=== PATIENT | male | born 1995 | race Caucasian/White ===

== ENCOUNTER 2016-05-25 22:27 | Emergency (ER) | payer OTHER ==
[~2016-05-25] VITALS: Ht 177.8 cm; Wt 160.5 kg
[~2016-05-25 22:27] MED LIST: ALBU8.5H5
[2016-05-25 22:46] VITALS: Ht 177.8 cm; Wt 160.5 kg
[2016-05-26 02:37] VITALS: BP 122/83; PULSE 77; RESP 20; TEMP 98.2
--- NOTE | 2016-05-26 05:19 | ERD ---
ER Documentation Chief Complaint Date/Time DATE: 05/26/16 TIME: 05:17 Chief Complaint needle stick while throwing trash at work HPI This patient is a 21-year-old male with history of appendicitis presenting to the emergency department for needle stick on the right medial side of his hand which occurred at approximately 9 PM today. The patient is right-hand dominant. The patient was unsure if you stem by needle or some other object while taking out the trash at his job. He said he squeezed some blood out of the wound directly after but no other bleeding occurred. The patient also washed the area with soap and water. The patient's tetanus is up-to-date. The patient denies fevers, chills, or other symptoms at this time. ROS All systems reviewed and are negative except as per history of present illness. Medications Home Meds Reported Medications Albuterol Sulfate* (Albuterol Sulfate* HFA) 8.5 Gm Hfa.aer.ad 05/09/09 Allergies Allergies: Coded Allergies: No Known Drug Allergies (Verified Allergy, Mild, 05/09/09) PMhx/Soc History of Surgery: Yes (S/P L PROXIMAL FEMUR LESION BIOPSY 08-04-12) Anesthesia Reaction: No Hx Neurological Disorder: No Hx Respiratory Disorders: Yes (ASTHMA) Hx Cardiac Disorders: No Hx Psychiatric Problems: No Hx Miscellaneous Medical Probl: No Hx Alcohol Use: No Hx Substance Use: No Hx Tobacco Use: No Smoking Status: Never smoker FmHx Noncontributory for chief complaint. Physical Exam Vitals Vital Signs Date Time Temp Pulse Resp B/P Pulse Ox O2 Delivery O2 Flow Rate FiO2 05/26/16 02:37 98.2 77 20 122/83 98 Room Air 05/25/16 22:46 98.8 99 20 151/81 98 Physical Exam Const: The patient is resting comfortably in no acute distress. Head: Atraumatic Eyes: Normal Conjunctiva ENT: Normal External Ears, Nose and Mouth. Neck: Full range of motion..~ No meningismus. Resp: Clear to auscultation bilaterally Cardio: Regular rate and rhythm, no murmurs Abd: Soft, non tender, non distended. Normal bowel sounds Skin: No petechiae or rashes Back: No midline or flank tenderness Ext: No cyanosis, or edema Neur: Awake and alert Psych: Normal Mood and Affect Results 24 hrs Laboratory Tests Test 05/26/16 02:28 Hepatitis B Surface Antigen NEGATIVE Hepatitis C Antibody NEGATIVE HIV (1&2) Antibody NEGATIVE Procedures/MDM I have ordered the needlestick panel as a routine lab check. Patient is to call in 1 week for further results. The patient is to return in 3 months to have repeat labs drawn. The patient is to return in 6 months to have repeat labs drawn. Patient was given instructions regarding prevention of needlestick injuries in the future. I will suspicion for cellulitis or other emergent conditions at this time. The patient is to follow-up with her primary care physician. Departure Diagnosis: Primary Impression: Needlestick injury accident Condition: Fair Patient Instructions: Standard Precautions: [place] Referrals: [facility]) [facility] YOU HAVE RECEIVED A MEDICAL SCREENING EXAM AND THE RESULTS INDICATE THAT YOU DO NOT HAVE A CONDITION THAT REQUIRES URGENT TREATMENT IN THE EMERGENCY DEPARTMENT. FURTHER EVALUATION AND TREATMENT OF YOUR CONDITION CAN WAIT UNTIL YOU ARE SEEN IN YOUR DOCTORS OFFICE WITHIN THE NEXT 1-2 DAYS. IT IS YOUR RESPONSIBILITY TO MAKE AN APPOINTMENT FOR FOLOW-UP CARE. IF YOU HAVE A PRIMARY DOCTOR --you should call your primary doctor and schedule an appointment IF YOU DO NOT HAVE A PRIMARY DOCTOR YOU CAN CALL OUR PHYSICIAN REFERRAL HOTLINE AT IF YOU CAN NOT AFFORD TO SEE A PHYSICIAN YOU CAN CHOSE FROM THE FOLLOWING [facility] [address] [facility] [address] [facility] [facility] [address] [facility]. [facility] [address] [facility]. [facility] [address] [facility]. [facility]. [address] Additional Instructions: Return here or to your primary care physician in 3 months. Return here or to your primary care physician in 6 months. Follow-up with your primary care physician within 1 week. Return to the emergency department immediately should you have any new or worsening symptoms, uncontrolled fevers, or other unexplained symptoms. ANGEL AC PA-C May 26, 2016 05:19
== END 2016-05-26 02:39 | disposition home or self-care (01) ==
LOC: FTE 22:27
DX: S61.431A Puncture wound without foreign body of right hand, initial encounter (principal); J45.909 Unspecified asthma, uncomplicated; W46.1XXA Contact with contaminated hypodermic needle, initial encounter; Y92.89 Other specified places as the place of occurrence of the external cause
CPT/HCPCS: 86703; 86706; 86803; 87340; 99283